=== PATIENT | female | born 1975 | race Two or more races ===

== ENCOUNTER → 2024-04-06 | Outpatient (CLI) | payer MEDICAID, SELFPAY ==
--- NOTE | 2024-04-06 12:30 | XR_ITS ---
Examination: Bone scan whole body, radioisotope Date and time of exam: April 06, 2024 1230 hours INDICATIONS: Patient fell at work a year ago, lump in the left ankle Technique: Study has been performed with intravenous administration of 23.2 mci 99M technetium MDP. Patient refused the study IMPRESSION: Patient refused the study
== END | disposition home or self-care (01) ==
LOC: SNUC 09:04
PROVIDERS: PCP Physician Assistant Medical; Referring Provider Physician Assistant Medical; Visit Provider Physician Assistant Medical
DX: Z53.29 Procedure and treatment not carried out because of patient's decision for other reasons (principal)
CPT/HCPCS: 78306; A9503